=== PATIENT | female | born 1980 ===

== ENCOUNTER 2016-05-18 20:32 | Inpatient (IN) | payer OTHER ==
[~2016-05-18] VITALS: Ht 157.5 cm; Wt 110.0 kg
[2016-05-18] MEDS ORDERED: FOLI20CA PO (20:47)
[2016-05-18] MEDS ORDERED: PRENTAB9 PO (20:49)
[2016-05-18] MEDS ORDERED: LACTATED RINGER'S 1000 ML IV STA (21:37)
[2016-05-18] MEDS: LR 1,000 ML IV SCH (21:37)
[2016-05-18 21:57] LABS: MEAN CORPUSCULAR HEMOGLOBIN 28.9 pg (27.0-33.0); MEAN CORPUSCULAR HGB CONC 34.2 g/dl (32.0-36.5); MEAN CORPUSCULAR VOLUME 84.6 fl (80.0-96.0); RED CELL DISTRIBUTION WIDTH 14.5 % (11.5-14.5); WHITE BLOOD COUNT 9.5 K/mm3 (4.0-10.0)
[2016-05-18] MEDS ORDERED: BICITRA 30ML SOLN UDC PO ONE (22:00)
--- NOTE | 2016-05-18 22:15 | HPEPDOC ---
Obstetrical History & Physical General Date of Admission May 18, 2016 at 20:58 History of Present Illness Ata is a 36yo with SIUP at 37w3d presenting for "gush of fluid". She states she was bathing her children earlier and felt fluid come out of her vagina and soak her underwear. She called me and I advised her to put a pad on and come in to triage if it saturated. She put a pad on and immediately saturated the pad with clear fluid. On presentation she was not feeling painful ctx, had no vaginal bleeding, felt good movement. Had pre-op visit yesterday for scheduled repeat . GBS swab performed yesterday, not yet resulted. course: AMA (NIPT low risk, female), hx of 2 prior sections ( first for NRFHT, 2nd was indicated repeat with 10# baby), pre- BMI of 34 and normal early 1hr glucola, 28wk glucola elevated with normal 3hr GTT. Chief Complaint: LOF, term, Rupture of membranes Information Provided By: Patient Care Care: Good Care Dating Final EDC: Jun 05, 2016 Final EDC by: LMP Antepartum Course Diagnos(e)s course: AMA (NIPT low risk, female), hx of 2 prior sections ( first for NRFHT, 2nd was indicated repeat with 10# baby), pre- BMI of 34 and normal early 1hr glucola, 28wk glucola elevated with normal 3hr GTT. Height (inches): 62 Pre- weight (lbs.): 189 Admission Weight (lbs.): 230 Change in Weight (lbs.): 41 Past Medical History Past Obstetrical History #1: Past Obstetrical History: Multigravida Date of Delivery: Feb 28, 2010 Gestation: 39 Type of Delivery: Ceserean section (for NRFHT) Sex of Infant: Male Weight of Infant (grams): 3628 Complications: No Past Obstetrical History #2: Past Obstetrical History: Multigravida Date of Delivery: Feb 28, 2014 Gestation: 39 Type of Delivery: Ceserean section Sex of : Male Weight of (grams): 4535 Complications: No H[employer] RES[employer] CONSULTANT History: Human papillomavirus(HPV), History of STD (2007 chlamydia) Past Medical History Medical History Pre- BMI 34 Surgical History: section (x2), Desha teeth, Other (left knee x2, PRK ) Family History Significant Family History: No pertinent family hx Social History Marital Status: Family situation: Spouse/partner home Psychosocial History: No pertinent psych hx * Smoker: non-smoker Alcohol: Denies Drugs: denies Imunizations Tdap status: current Influenza Status: current Allergies Coded Allergies: Shellfish Allergy (Verified Allergy, Severe, 05/18/16) Medications Scheduled Multivitamins/ ( 27-0.8 mg) 1 Tab Tab 1 TAB PO DAILY Miscellaneous Medications Folic Acid (Folic Acid) 20 Mg Cap 20 MG PO Physical Examination Physical Examination GENERAL: Alert and oriented times three. BREAST: . ABDOMEN: Gravid and non-tender to touch. FETUS: Is vertex (VTX) by sterile vaginal examination (SVE) HEART RATE: Regular rate and rhythm. LUNGS: Clear to auscultation (CTA). EXTREMITIES: 1+ pitting edema of BLE Other physical findings Grossly ruptured, clear fluid, nitrazine positive Laboratory Data 24H LABS Laboratory Tests 2 05/18/16 21:04: Serology Scanned Report Hepatitis B Testing 05/18/16 21:45: Pertinent Laboratoy Data Blood Type: O+ RBC Antibody Screen: Negative HIV: Negative Hepatitis B: Negative Hepatitis C: Unknown Rapid Plasma Reagin: Nonreactive Rubella: Immune Varicella: Immune Chlamydia/Gonorrhea: Negative Group B Streptococcus: Unknown Cystic Fibrosis: Negative Glucose Tolerance Test: 135 (follow up 3hr GTT wnl) Anatomy Ultrasound Ultrasound Date: Jan 06, 2016 Placenta Location: Left Lateral Normal Anatomy: Yes Placenta Previa: No Estimated Weight (grams): 302 Steroid Therapy Steroid Therapy: No Vaginal Examination Dilation: 2cm Effacement: 80+% Station: -2 Cervical Consistency: Soft Cervical Position: Anterior Presentation: Cephalic presentation Assessment Heart Rate (FHR): 140 Variability: Moderate Accelerations: Positive Decelerations: None Tocometer Contractions: Yes Frequency: every 3-7 min. Duration: less than 60 seconds Strength: palpated as mild Assessment/Plan Assessment Ata is a 36yo with SIUP at 37w3d with PROM, gross rupture of membranes with +nitrazine test. SCE 2/80/-2. History of 2 prior sections desiring repeat. GBS unknown (swab done yesterday not yet resulted). Cat I tracing, ctx q5min. Last ate at 1800. course: AMA (NIPT low risk, female), hx of 2 prior sections ( first for NRFHT, 2nd was indicated repeat with 10# baby), pre- BMI of 34 and normal early 1hr glucola, 28wk glucola elevated with normal 3hr GTT. Plan Admit and orient Counseled and consented for RLTCS vs TOLAC- patient still desires , consent form signed Will proceed with section when anesthesia provider is available Diet: NPO pre-op Labs and intravenous (IV) per unit protocol. Lactated Ringers (LR): Bolus 1000 mL, then at 125 mL/hr. 2g IV anceph pre-operatively place tomlin, prep and shave surgical area, SCDs MD Colby Dawson Dr., KATRINA D. MD May 18, 2016 22:14
[2016-05-18] MEDS ORDERED: MORPHINE PRES-FREE INJ 10 MG/10 ML VIAL (J2274) As Ordered ONE (22:32)
[2016-05-18] MEDS ORDERED: NALBUPHINE HCL 10 MG/ML AMP (J2300) IV PRN (22:59)
[2016-05-18] MEDS ORDERED: METOCLOPRAMIDE INJ 10MG/2ML VIAL (J2765) IV PRN (22:59)
[2016-05-18] MEDS ORDERED: NALOXONE INJ 0.4 MG/1 ML VIAL (J2310) IV PRN ×2 (22:59)
[2016-05-18] MEDS ORDERED: OXYTOCIN INJ 10 UNITS/ML VIAL (J2590) As Ordered ONE (23:14)
[2016-05-18] MEDS ORDERED: KETOROLAC 60 MG/2 ML VIAL (J1885) As Ordered ONE (23:14)
[2016-05-18] MEDS ORDERED: ONDANSETRON 4MG/2ML VIAL (J2405) As Ordered ONE (23:14)
[2016-05-18] MEDS ORDERED: PHENYLephrine HCL 500 MCG/5 ML (100MCG/ML) SYRINGE (J2370) As Ordered ONE (23:15)
[2016-05-18] MEDS ORDERED: ePHEDrine SULFATE 25 MG/5 ML(5MG/ML) SYRINGE As Ordered ONE (23:15)
[2016-05-18] MEDS ORDERED: fentaNYL 100 MCG/2 ML INJECTION (J3010) As Ordered ONE (23:46)
[2016-05-19] VITALS (9 sets, daily range): BP systolic 97–132; BP diastolic 54–75
[2016-05-19] MEDS ORDERED: KETOROLAC 30 MG/ML VIAL (J1885) IV SCH (01:00)
[2016-05-19] MEDS ORDERED: RHOGAM 300 MCG (1500 IU) INJ (J2790) IM SCH (01:00)
[2016-05-19] MEDS ORDERED: LR 1,000 ML IV SCH (01:00)
[2016-05-19] MEDS ORDERED: MEPERIDINE INJ 25 MG/ML VIAL (J2175) IV PRN (01:00)
[2016-05-19] MEDS ORDERED: fentaNYL 100 MCG/2 ML INJECTION (J3010) IV PRN (01:00)
[2016-05-19] MEDS ORDERED: MEASLES,MUMPS,RUBELLA VACCINE INJ (MMR-II) (90707) SC SCH (01:00)
[2016-05-19] MEDS ORDERED: ONDANSETRON 4MG/2ML VIAL (J2405) IV PRN ×2 (01:00)
[2016-05-19] MEDS ORDERED: NALBUPHINE HCL 10 MG/ML AMP (J2300) IV PRN (01:00)
[2016-05-19] MEDS ORDERED: PERCOCET 5MG/325MG TAB PO PRN (01:00)
[2016-05-19] MEDS: KETOROLAC 30 MG/ML VIAL (J1885) IV SCH ×4 (06:12→23:47)
[2016-05-19] MEDS: LR 1,000 ML IV SCH ×3 (06:13→21:46)
--- NOTE | 2016-05-19 07:21 | IPNPDOC ---
Text Note Date of Service The patient was seen on 05/19/16. NOTE Post-Op Day 1 Ata is a 36yo [id number] doing well on post-op day 1 s/p uncomplicated PLTCS indicated for PROM in the setting of 2 previous sections at 37w3d. Surgery was at 2336 on 05/18. She is . Lochia decreasing, tomlin catheter in place draining yellow urine, has not yet ambulated this morning. Tolerating regular diet. Denies f/c/n/v/SOB/CP/TREJO/abdominal pain. Vitals wnl, afebrile Exam: General: WDWN, NAD, resting comfortably Cardiac: S1S2 present, no murmur Lungs: CTAB without wheeze/crackles Abdomen: soft, NTTP, fundus firm u-1cm, pfannensteil covered by dry/clean dressing Extremities: no tenderness of calves bilaterally, SCDs on and functioning Labs: pre-op H/H 12.6/37 (surgical EBL 500ml), repeat H/H pending Assessment: Ata is a 36yo [id number] doing well on post-op day 1 s/p uncomplicated PLTCS indicated for PROM in the setting of 2 previous sections at 37w3d. Vitals wnl, benign exam. No e/o infection, hemodynamically stable. Plan: -remove tomlin this morning and encourage ambulation -Toradol/percocet for pain -routine post-op/post- care -Regular diet -Encourage and use of IS -desires Mirena IUD for contraception Dr. Lily Sherwood MD [place] Juan SORENSEN, I+O VSJuan, I+O Laboratory Tests 05/18/16 21:45 Red Blood Count 4.37, Mean Corpuscular Volume 84.6, Mean Corpuscular Hemoglobin 28.9, Mean Corpuscular Hemoglobin Concent 34.2, Red Cell Distribution Width 14.5 Vital Signs Date Time Temp Pulse Resp B/P Pulse Ox O2 Delivery O2 Flow Rate FiO2 05/19/16 06:05 97.2 87 16 112/55 98 Room Air I&O- Last 24 Hours up to 6 AM 05/19/16 05:59 Output Total 500 ml Balance -500 ml LILY SHERWOOD MD May 19, 2016 07:21
[2016-05-19] MEDS ORDERED: CLARITHROMYCIN 125 MG/5 ML PO SCH (09:00)
[2016-05-19] MEDS: DOCUSATE SODIUM 100 MG CAP PO SCH ×3 (09:00→21:28)
[2016-05-19] MEDS ORDERED: LR 1,000 ML IV ONE (10:15)
[2016-05-19] MEDS: PRENATAL VITAMIN TAB PO SCH (10:42)
--- NOTE | 2016-05-19 11:03 | RO ---
DATE OF PROCEDURE: 05/18/2016 PREPROCEDURE DIAGNOSES: 1. Nolen intrauterine at 37 weeks 3 days with rupture of membranes. 2. History of two prior sections, declining trial of labor after section (TOLAC) and desiring repeat section. 3. Prepregnancy Body Mass Index (BMI) of 34 with 40 pound weight gain in . 4. Advanced maternal age. POSTPROCEDURE DIAGNOSES: 1. Nolen intrauterine at 37 weeks 3 days with rupture of membranes. 2. History of two prior sections, declining trial of labor after section (TOLAC) and desiring repeat section. 3. Prepregnancy Body Mass Index (BMI) of 34 with 40 pound weight gain in . 4. Advanced maternal age. SURGEON: Susan Sherwood MD DIRECTOR PHARMACOVIGILANCE: Juan Streeter MD CLINICAL SERVICE: Obstetrics. INDICATION FOR OPERATION: Ata is a 36-year-old, 4, now para 3-0-1-3 , who presented on 05/18/2016 with premature rupture of membranes with a history of two prior sections, desiring a repeat section. MATERIAL FORWARDED TO LAB FOR EXAMINATION: None. DESCRIPTION OF FINDINGS: There was dense scar tissue from the anterior aspect of the uterus to the rectus muscles, as well as omental adhesions. Female was in OP position. scores were 8 and 9. Weight was 3788 grams, or 8 pounds 6 ounces. She otherwise had normal appearing ovaries and fallopian tubes. INFECTION CLASSIFICATION: II. ESTIMATED BLOOD LOSS: 500 mL. FLUIDS: 1800 mL of lactated Ringers. URINE OUTPUT: 200 mL of yellow colored urine. OPERATION PERFORMED: Repeat low transverse section. DESCRIPTION OF PROCEDURE: Patient was taken to the operating room. Doptone in the operating room were reassuring. Spinal anesthesia was administered. Delaney catheter and bilateral sequential compression devices were placed. She received 2 grams of intravenous (IV) Ancef prophylactically. She was prepped and draped in normal sterile fashion in the dorsal supine position with a left lateral tilt. Time-out was performed to confirm patient name, date of , procedure, and indication. Surgical team, nursing staff, pediatrics team, and anesthesia were all in agreement. Spinal anesthesia was found to be adequate using an Allis clamp. A Pfannenstiel skin incision was made through her prior incision lines, using a scalpel and carried through to the underlying layer of fascia. The fascia was incised in the midline, and the incision was extended laterally with Castellanos scissors. There was dense adhesive tissue in the subcutaneous layer. The superior and inferior aspects of the fascial incision were grasped with Naseem clamps, elevated, and the underlying rectus muscles were dissected off bluntly and sharply. Peritoneum was entered digitally, and the rectus muscles were in the midline. We extended into the rectus on the left side to be able to gain adequate space to deliver the fetus. We had good visualization of the bladder and the bladder blade was inserted, and the vesicouterine peritoneum was identified, grasped with pickups, and entered sharply with the Metzenbaum scissors. The incision was extended laterally, and the bladder flap was created digitally. Bladder blade was reinserted, and the lower uterine segment was scored in a transverse fashion with a scalpel. The uterus was entered bluntly, and the incision was extended with traction with clear amniotic fluid noted. Bladder blade was removed, and the infant's head was elevated to the level of the incision. Fundal pressure was applied, and the head was delivered atraumatically in the OP position. Anterior shoulder, posterior shoulder, and corpus were delivered without difficulty. Nose and mouth were suctioned with bulb suction, and the cord was clamped times two and cut. The was handed off to the awaiting team. Placenta was removed with traction on the cord and uterine massage, and the uterus was then exteriorized and cleared of all clot and debris. Notably, we had excised a dense adhesion between the anterior uterus and the rectus previously and when we exteriorized the uterus, we were able to see clearly where the adhesion had been on the anterior uterine wall and we were able to repair that after repairing the hysterotomy using three figure of eight sutures using 0 Vicryl. The uterine incision itself was repaired with #0 Vicryl suture in a running locking fashion. The uterine incision was inspected and total hemostasis was noted of both the hysterotomy and at the defect at the anterior uterine wall that was fully repaired. We inspected the ovaries and fallopian tubes and they appeared normal. The posterior cul-de-sac was irrigated. The uterus was returned to the abdomen. Gutters were cleared of all clot and irrigated with hemostasis noted. The rectus muscle was reapproximated on the left side where we had incised it and total hemostasis was noted. We used #0 Vicryl suture on the rectus muscle. The fascia was reapproximated with #0 Vicryl suture in a running fashion. Subcutaneous tissue was copiously irrigated. Ami's fascia was reapproximated using #3-0 Vicryl suture in a running fashion , and the skin edges were reapproximated using a running subcuticular stitch using #4-0 Monocryl suture. The incision was cleaned using a wet lap and dried with a dry lap. Steri-Strips were applied in the usual fashion perpendicular to the Pfannenstiel incision. Two strips of Telfa were layered on top of the Steri-Strips followed by a dry sterile towel. Surgical drapes were removed, and sterile towel was removed, and a pressure dressing was applied over the entire surgical incision. The vagina was cleared of all blood clot without active bleeding noted. Fundus was firm at the umbilicus. All counts were correct times two. The procedure was without complication, and she tolerated the procedure well. She was taken to the recovery room on labor and delivery in good condition. STEFANO
[2016-05-20 05:34] VITALS: BP 106/59
[2016-05-20] MEDS: LR 1,000 ML IV SCH ×2 (06:05→21:37)
[2016-05-20 07:19] LABS: MEAN CORPUSCULAR HEMOGLOBIN 28.6 pg (27.0-33.0); MEAN CORPUSCULAR HGB CONC 33.5 g/dl (32.0-36.5); MEAN CORPUSCULAR VOLUME 85.3 fl (80.0-96.0); RED CELL DISTRIBUTION WIDTH 14.6 % (11.5-14.5); WHITE BLOOD COUNT 11.2 K/mm3 (4.0-10.0)
[2016-05-20] MEDS: IBUPROFEN 800 MG TAB PO SCH ×3 (07:47→23:46)
[2016-05-20] MEDS: DOCUSATE SODIUM 100 MG CAP PO SCH ×2 (08:43→20:49)
[2016-05-20] MEDS: PRENATAL VITAMIN TAB PO SCH (08:44)
--- NOTE | 2016-05-20 12:44 | IPNPDOC ---
Text Note Date of Service The patient was seen on 05/20/16. NOTE Post-Op Day 2 Ata is a 36yo [id number] doing well on post-op day 2 s/p uncomplicated PLTCS indicated for PROM in the setting of 2 previous sections at 37w3d. Surgery was at 2336 on 05/18. She is . Lochia minimal. Ambulating and voiding spontaneously without issue. Tolerating regular diet. Denies f/c/n/v/SOB/CP/TREJO/abdominal pain. Vitals wnl, afebrile Exam: General: WDWN, NAD, resting comfortably Cardiac: S1S2 present, no murmur Lungs: CTAB without wheeze/crackles Abdomen: soft, NTTP, fundus firm u-1cm, pfannensteil incision well approximated with steri strips overlying. No erythema/induration/drainage. Extremities: trace edema of BLE Labs: pre-op H/H 12.6/37 (surgical EBL 500ml) post-op H/H 10.9/32.6 Assessment: Ata is a 36yo [id number] doing well on post-op day 2 s/p uncomplicated PLTCS indicated for PROM in the setting of 2 previous sections at 37w3d. Vitals wnl, benign exam. No e/o infection, hemodynamically stable. Appropriate change in H/H. Plan: -Motrin/percocet for pain -routine post-op/post- care -Regular diet -Encourage and use of IS -desires Mirena IUD for contraception -plan for discharge home tomorrow Dr. Lily Sherwood MD [place] RYAN SANTO,Juan, I+O VSJuan I+O Laboratory Tests 05/20/16 06:48 Red Blood Count 3.82 L, Mean Corpuscular Volume 85.3, Mean Corpuscular Hemoglobin 28.6, Mean Corpuscular Hemoglobin Concent 33.5, Red Cell Distribution Width 14.6 H Vital Signs Date Time Temp Pulse Resp B/P Pulse Ox O2 Delivery O2 Flow Rate FiO2 05/20/16 05:34 99.3 99 18 106/59 05/19/16 22:34 96 Room Air I&O- Last 24 Hours up to 6 AM 05/20/16 06:00 Intake Total 2100 ml Output Total 2075 ml Balance 25 ml LILY SHERWOOD MD May 20, 2016 12:44
[2016-05-20 18:12] VITALS: BP 119/73
[2016-05-20] MEDS: PERCOCET 5MG/325MG TAB PO PRN (20:50)
[2016-05-21] MEDS: LR 1,000 ML IV SCH (05:37)
[2016-05-21 06:37] VITALS: BP 117/70
[2016-05-21] MEDS: PERCOCET 5MG/325MG TAB PO PRN (06:40)
[2016-05-21] MEDS: PRENATAL VITAMIN TAB PO SCH (08:41)
[2016-05-21] MEDS: DOCUSATE SODIUM 100 MG CAP PO SCH (08:42)
[2016-05-21] MEDS: IBUPROFEN 800 MG TAB PO SCH (08:42)
--- NOTE | 2016-05-21 11:22 | IPNPDOC ---
Text Note Date of Service The patient was seen on 05/21/16. NOTE Post-Op Day 3 Ata is a 36yo [id number] doing well on post-op day 3 s/p uncomplicated PLTCS indicated for PROM in the setting of 2 previous sections at 37w3d. Surgery was at 2336 on 05/18. She is . Lochia minimal. Ambulating and voiding spontaneously without issue. Tolerating regular diet. Denies f/c/n/v/SOB/CP/TREJO/abdominal pain. Feels ready to go home today. Vitals wnl, afebrile Exam: General: WDWN, NAD Cardiac: S1S2 present, no murmur Lungs: CTAB without wheeze/crackles Abdomen: soft, NTTP, fundus firm u-1cm, pfannensteil incision well approximated. No erythema/induration/drainage. Extremities: trace edema of BLE Labs: pre-op H/H 12.6/37 (surgical EBL 500ml) post-op H/H 10.9/32.6 Assessment: Ata is a 36yo [id number] doing well on post-op day 3 s/p uncomplicated PLTCS indicated for PROM in the setting of 2 previous sections at 37w3d. Vitals wnl, benign exam. No e/o infection, hemodynamically stable. Appropriate change in H/H. Plan: -discharge to home today -Motrin/percocet for pain -Regular diet -desires Mirena IUD for contraception Dr. Lily Sherwood MD [place] [facility] VS,Juan, I+O VS, Juan, I+O Vital Signs Date Time Temp Pulse Resp B/P Pulse Ox O2 Delivery O2 Flow Rate FiO2 05/21/16 06:40 18 Room Air 05/21/16 06:37 100.2 108 117/70 05/19/16 22:34 96 LILY SHERWOOD MD May 21, 2016 11:22
--- NOTE | 2016-05-21 11:30 | DS.PDOC ---
Discharge Summary General Date of Admission May 18, 2016 at 20:58 Date of Discharge May 21, 2016 Attending Physician: LILY SHERWOOD MD Discharge Summary PROCEDURES PERFORMED DURING STAY: Repeat low transverse section ADMITTING DIAGNOSES: 1. Term intra-uterine with premature rupture of membranes 2. History of 2 prior sections 3. Advanced maternal age 4. Obesity DISCHARGE DIAGNOSES: 1. Term intra-uterine with premature rupture of membranes 2. History of 2 prior sections 3. Advanced maternal age 4. Obesity COMPLICATIONS/CHIEF COMPLAINT: Premature rupture of membranes HISTORY OF PRESENT ILLNESS/HOSPITAL COURSE: Ata is a 36yo [id number] status post uncomplicated repeat low transverse section indicated for premature rupture of membranes in the setting of 2 previous sections at 37w3d. Vitals normal, benign exam. No evidence of infection, hemodynamically stable. Appropriate change in H/H. Benign post- operative course. DISCHARGE MEDICATIONS: motrin, percocet, lanolin, miralax- provided before discharge ALLERGIES: Please see below. PHYSICAL EXAMINATION ON DISCHARGE: Vitals wnl, afebrile Exam: General: WDWN, NAD Cardiac: S1S2 present, no murmur Lungs: CTAB without wheeze/crackles Abdomen: soft, NTTP, fundus firm u-1cm, pfannensteil incision well approximated. No erythema/induration/drainage. Extremities: trace edema of BLE LABORATORY DATA: pre-op H/H 12.6/37 (surgical EBL 500ml) post-op H/H 10.9/32.6 ACTIVITY: As tolerated, vaginal rest for 6 weeks, no heavy lifting greater than weight of baby DIET: regular, stay well hydrated, eat plenty of fiber DISCHARGE PLAN: -discharge to home today -Motrin/percocet for pain -Regular diet -desires Mirena IUD for contraception DISPOSITION: home DISCHARGE INSTRUCTIONS: 1. Return to clinic in 2-3 weeks for routine incision check and then will schedule a 6 week routine visit 2. Keep incision clean and DRY. Ok to shower, pat dry very well after. Place kole-pad over incision to wick away moisture. DISCHARGE CONDITION: Stable TIME SPENT ON DISCHARGE: Greater than [address] Lily Sherwood MD [place] [facility] Vital Signs/I&Os Vital Signs Date Time Temp Pulse Resp B/P Pulse Ox O2 Delivery O2 Flow Rate FiO2 3/24/17 06:40 18 Room Air 05/21/16 06:37 100.2 108 117/70 05/19/16 22:34 96 Discharge Medications Scheduled Multivitamins/ ( 27-0.8 mg) 1 Tab Tab 1 TAB PO DAILY (Reported ) Miscellaneous Medications Folic Acid (Folic Acid) 20 Mg Cap 20 MG PO (Reported) Allergies Coded Allergies: Shellfish Allergy (Verified Allergy, Severe, 05/18/16) LILY SHERWOOD MD May 21, 2016 11:30
[2016-05-21] MEDS ORDERED: IBUP-1114 PO (11:40)
[2016-05-21] MEDS ORDERED: OXYC1TAB23 PO ×2 (11:40→11:41)
== END 2016-05-21 12:15 | disposition home or self-care (01) | DRG 766 ==
LOC: M LDO 20:32 → M LDI 20:58 → M OBS 05-19 02:31
PROVIDERS: ADMIT Obstetrics & Gynecology; ATTEND Obstetrics & Gynecology
PROC: 10D00Z1 Extraction of Products of Conception, Low, Open Approach (ICD-10-PCS; principal; 2016-05-18 22:52)
DX: O34.211 Maternal care for low transverse scar from previous cesarean delivery (principal); Z3A.37 37 weeks gestation of pregnancy; O75.82 Onset (spontaneous) of labor after 37 completed weeks of gestation but before 39 completed weeks gestation, with delivery by (planned) cesarean section; O42.02 Full-term premature rupture of membranes, onset of labor within 24 hours of rupture; O99.214 Obesity complicating childbirth; E66.9 Obesity, unspecified; Z68.34 Body mass index [BMI] 34.0-34.9, adult; Z37.0 Single live birth